=== PATIENT | male | born 1970 | race Caucasian/White ===

== ENCOUNTER 2024-08-07 13:51 | Outpatient (CLI) | payer OTHER | END 2024-08-07 13:52 | disposition home or self-care (01) | LOC: CSHRAD 13:51 | PROVIDERS: ATTEND Emergency Medicine | DX: M54.32 Sciatica, left side (principal); M25.552 Pain in left hip; M47.816 Spondylosis without myelopathy or radiculopathy, lumbar region; M16.12 Unilateral primary osteoarthritis, left hip | CPT/HCPCS: 72100 ==